=== PATIENT | female | born 1975 | race Caucasian/White ===

== ENCOUNTER 2017-01-12 09:43 | Emergency (ER) | payer BC ==
--- NOTE | 2017-01-12 09:53 | ER Document Report ---
ED Medical Screen (RME) - General Stated Complaint: SYNCOPE Time seen by provider: 09:49 Mode of Arrival: Wheelchair Information source: Patient Notes: 41-year-old female presents to ED for dizziness lightheadedness and 7 episodes of near-syncope. She states she'll just be like this morning driving and she gets everything black few seconds and then it comes back. 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 Patient's had a hysterectomy I have greeted and performed a rapid initial assessment of this patient. A comprehensive ED assessment and evaluation of the patient, analysis of test results and completion of medical decision making process will be conducted by an additional ED providers. TRAVEL OUTSIDE OF THE [place] IN LAST 30 DAYS: No - Related Data Allergies/Adverse Reactions: Sulfa (Sulfonamide Antibiotics) Allergy (Intermediate, Verified 01/12/17 09:49) rash/hives iodine [Iodine] Allergy (Verified 01/12/17 09:49) hives/rash promethazine [Promethazine] Adverse Reaction (Mild, Verified 01/12/17 09:49) leg shakes latex [Latex] Adverse Reaction (Verified 01/12/17 09:49) Peppers Allergy (Uncoded 01/12/17 09:49) Past Medical History - Past Medical History Cardiac Medical History: Denies: Hx Coronary Artery Disease, Hx Heart Attack, Hx Hypertension Pulmonary Medical History: Denies: Hx Asthma, Hx Bronchitis, Hx COPD, Hx Pneumonia Neurological Medical History: Reports: Hx Migraine. Denies: Hx Cerebrovascular Accident, Hx Seizures Endocrine Medical History: Reports: Hx Hypothyroidism GI Medical History: Reports: Hx Gastritis, Hx Irritable Bowel Musculoskeltal Medical History: Denies Hx Arthritis Past Surgical History: Reports: Hx Cholecystectomy, Hx Gynecologic Surgery - Left Oophrectomy, Hx Hysterectomy, Hx Tonsillectomy - T/A - Immunizations Immunizations up to date: Yes Hx Diphtheria, Pertussis, Tetanus Vaccination: Yes Physical Exam - Vital signs Vitals: Temp Pulse Resp BP Pulse Ox 98.4 F 100 16 121/84 98 01/12/17 09:46 01/12/17 09:46 01/12/17 09:46 01/12/17 09:46 01/12/17 09:46 Course - Vital Signs Vital signs: Temp Pulse Resp BP Pulse Ox 98.4 F 100 16 121/84 98 03/16/17 09:46 01/12/17 09:46 01/12/17 09:46 01/12/17 09:46 01/12/17 09:46
[2017-01-12 11:02] LABS: ABSOLUTE BASOPHILS # (AUTO) 0.1 10^3/uL (0.0-0.2); ABSOLUTE EOSINOPHILS # (AUTO) 0.2 10^3/uL (0.0-0.6); ABSOLUTE LYMPHOCYTES (AUTO) 2.2 10^3/uL (0.5-4.7); ABSOLUTE MONOCYTES (AUTO) 1.1 10^3/uL (0.1-1.4); ABSOLUTE NEUT (AUTO) 7.7 10^3/uL (1.7-8.2); BASOPHILS % (AUTO) 0.6 % (0-2); HEMATOCRIT 44.8 % (36.0-47.0); HGB HCT DIFFERENCE 0.2; LYMPHOCYTES % (AUTO) 19.8 % (13-45); MEAN CORPUSCULAR HEMOGLOBIN 29.6 pg (27.0-33.4); MEAN CORPUSCULAR HGB CONC 33.5 g/dL (32.0-36.0); MEAN CORPUSCULAR VOLUME 89 fl (80-97); MONOCYTES % (AUTO) 9.3 % (3-13); RED BLOOD COUNT 5.06 10^6/uL (3.72-5.28); RED CELL DISTRIBUTION WIDTH 12.7 % (11.5-14.0); SEGMENTED NEUTROPHILS % (AUTO) 68.3 % (42-78); WHITE BLOOD COUNT 11.4 10^3/uL (4.0-10.5)
--- NOTE | 2017-01-12 11:12 | ER Document Report ---
ED Syncope and Near Syncope - General Chief Complaint: Near Syncope Stated Complaint: SYNCOPE Time Seen by Provider: 01/12/17 09:48 Mode of Arrival: Wheelchair Notes: The patient is a 41-year-old female, past medical history Viktor's, chronic hypercalcemia, presents after feeling lightheaded multiple times over the past day. She says that the lightheadedness is worse when she stands up quickly. The episodes last a very short time with resolution of symptoms. She denies headache, syncope, nausea, vomiting, abdominal pain, urinary symptoms, chest pain, shortness of breath, fevers or leg swelling. TRAVEL OUTSIDE OF THE [place] IN LAST 30 DAYS: No - Related Data Allergies/Adverse Reactions: Sulfa (Sulfonamide Antibiotics) Allergy (Intermediate, Verified 01/12/17 09:49) rash/hives iodine [Iodine] Allergy (Verified 01/12/17 09:49) hives/rash promethazine [Promethazine] Adverse Reaction (Mild, Verified 01/12/17 09:49) leg shakes latex [Latex] Adverse Reaction (Verified 01/12/17 09:49) Peppers Allergy (Uncoded 01/12/17 09:49) Past Medical History - General Information source: Patient - Social History Smoking Status: Never Smoker Chew tobacco use (# tins/day): No Frequency of alcohol use: None Drug Abuse: None Family History: Reviewed & Not Pertinent Patient has suicidal ideation: No Patient has homicidal ideation: No - Past Medical History Cardiac Medical History: Denies: Hx Coronary Artery Disease, Hx Heart Attack, Hx Hypertension Pulmonary Medical History: Denies: Hx Asthma, Hx Bronchitis, Hx COPD, Hx Pneumonia Neurological Medical History: Reports: Hx Migraine. Denies: Hx Cerebrovascular Accident, Hx Seizures Endocrine Medical History: Reports: Hx Hypothyroidism Renal/ Medical History: Denies: Hx Peritoneal Dialysis GI Medical History: Reports: Hx Gastritis, Hx Irritable Bowel Musculoskeltal Medical History: Denies Hx Arthritis Past Surgical History: Reports: Hx Cholecystectomy, Hx Gynecologic Surgery - Left Oophrectomy, Hx Hysterectomy, Hx Tonsillectomy - T/A - Immunizations Immunizations up to date: Yes Hx Diphtheria, Pertussis, Tetanus Vaccination: Yes Review of Systems - Review of Systems Notes: REVIEW OF SYSTEMS: CONSTITUTIONAL: -fevers, -chills EENT: -eye pain, -difficulty swallowing, -nasal congestion CARDIOVASCULAR:-chest pain, -syncope. RESPIRATORY: -cough, -SOB GASTROINTESTINAL: -abdominal pain, - nausea, -vomiting, -diarrhea GENITOURINARY: -dysuria, -hematuria MUSCULOSKELETAL: -back pain, -neck pain SKIN: -rash or skin lesions. HEMATOLOGIC: -easy bruising or bleeding. LYMPHATIC: -swollen, enlarged glands. NEUROLOGICAL: -altered mental status or loss of consciousness, -headache, - neurologic symptoms PSYCHIATRIC: -anxiety, -depression. ALL OTHER SYSTEMS REVIEWED AND NEGATIVE. Physical Exam - Vital signs Vitals: Temp Pulse Resp BP Pulse Ox 98.4 F 100 16 121/84 98 01/12/17 09:46 01/12/17 09:46 01/12/17 09:46 01/12/17 09:46 01/12/17 09:46 - Notes Notes: PHYSICAL EXAMINATION: GENERAL: Well-appearing, well-nourished and in no acute distress. HEAD: Atraumatic, normocephalic. EYES: Pupils equal round and reactive to light, extraocular movements intact, sclera anicteric, conjunctiva are normal. ENT: nares patent, oropharynx clear without exudates. Moist mucous membranes. NECK: Normal range of motion, supple without lymphadenopathy LUNGS: Breath sounds clear to auscultation bilaterally and equal. No wheezes rales or rhonchi. HEART: Regular rate and rhythm without murmurs ABDOMEN: Soft, nontender, normoactive bowel sounds. No guarding, no rebound. No masses appreciated. EXTREMITIES: Normal range of motion, no pitting or edema. No cyanosis. NEUROLOGICAL: Cranial nerves grossly intact. Normal speech, normal gait. Normal sensory, motor, and reflex exams. PSYCH: Normal mood, normal affect. SKIN: Warm, Dry, normal turgor, no rashes or lesions noted. Course - Re-evaluation Re-evalutation: Patient monitored in the ER without any arrhythmias. She still feels briefly lightheaded lightheaded with a normal sinus rhythm on the monitor. She is slightly orthostatic when tested. Provided IV fluids. Patient is still feeling lightheaded when she goes from laying down to sitting. Will obtain a CTA to assess for PE due to these near syncopal episodes. She said that she had hives from a prior CT scan with IV contrast. Will premedicate her at this time. CTA negative for PE. No allergic reaction noted. Asymptomatic at this time. Told her to follow-up with her primary care physician and transplant immunologist for further evaluation and treatment of her symptoms and hypercalcemia. Given strict return precautions and she understands. - Vital Signs Vital signs: Temp Pulse Resp BP Pulse Ox 98.4 F 81 13 108/67 98 01/12/17 09:46 01/12/17 17:07 01/12/17 15:05 01/12/17 17:07 01/12/17 14:01 - Laboratory Result Diagrams: 01/12/17 10:40 01/12/17 10:40 Laboratory results interpreted by me: 01/12/17 01/12/17 01/12/17 10:40 10:40 11:00 WBC 11.4 H Calcium 12.1 H* Total Protein 8.8 H Ur Leukocyte Esterase TRACE H - EKG Interpretation by Me EKG shows normal: Sinus rhythm, Lando, Intervals, QRS Complexes, ST-T Waves Rate: Normal Discharge - Discharge Clinical Impression: Lightheaded Condition: Good Disposition: HOME, SELF-CARE Additional Instructions: Orthostatic Hypotension You have orthostatic hypotension. Your blood pressure goes down when you stand up. Symptoms can include dizziness, transient loss of vision, ringing in the ears, nausea, and fainting. At this time, there's no evidence of a serious problem requiring hospitalization. Orthostatic hypotension can be caused by dehydration, poor nutrition, over- exercise, or medication. For some people, orthostatic hypotension is an ongoing problem, and no cause can be found. We usually treat orthostatic hypotension with fluids. We look for a treatable cause. If no cause was found, you should get enough rest, exercise moderately, and get plenty of fluids. When you feel the first symptoms suggesting you might faint, sit or squat down as quickly as you can. If symptoms don't go away quickly, lie down. Call the doctor or return if you are worsening or if new symptoms develop. Referrals: LUIS GERARD MD [Primary Care Provider] - Follow up as needed
--- NOTE | 2017-01-12 11:15 | EKG REPORT ---
SEVERITY:- NORMAL ECG - SINUS RHYTHM : Confirmed by: Molly Craven 12-Jan-2017 11:15:00
[2017-01-12 11:18] LABS: APPEARANCE,URINE SLIGHTLY-CLOUDY; BILIRUBIN,URINE NEGATIVE (NEGATIVE); GLUCOSE, URINE NEGATIVE (NEGATIVE); KETONES,URINE NEGATIVE (NEGATIVE); LEUKOCYTE ESTERASE,URINE TRACE (NEGATIVE); NITRITE,URINE NEGATIVE (NEGATIVE); PROTEIN,URINE NEGATIVE (NEGATIVE); URINE SPECIFIC GRAVITY 1.025; UROBILINOGEN,URINE NEGATIVE mg/dL (<2.0)
[2017-01-12 11:19] LABS: ALANINE AMINOTRANSFERASE 49 U/L (9-52); ALKALINE PHOSPHATASE 101 U/L (38-126); ANION GAP 12 (5-19); ASPARTATE AMINO TRANSFERASE 33 U/L (14-36); BILIRUBIN,TOTAL 1.2 mg/dL (0.2-1.3); BLOOD UREA NITROGEN 18 mg/dL (7-20); CARBON DIOXIDE 28 mmol/L (22-30); CHLORIDE 104 mmol/L (98-107); CREATINE KINASE 30 U/L (30-135); CREATININE RESULT 0.56 mg/dL (0.52-1.25); GLUCOSE 99 mg/dL (75-110); POTASSIUM 4.3 mmol/L (3.6-5.0); SODIUM 143.8 mmol/L (137-145); TOTAL PROTEIN 8.8 g/dL (6.3-8.2)
[2017-01-12 11:33] LABS: CREATINE KINASE MB < 0.22 ng/mL (<4.55); TROPONIN I < 0.012 ng/mL
[2017-01-12 11:38] LABS: CALCIUM 12.1 mg/dL (8.4-10.2)
[2017-01-12] MEDS ORDERED: NORMAL SALINE 1000 ML 1,000 ML IV PRN (11:43)
[2017-01-12] MEDS ORDERED: NORMAL SALINE 1000 ML 1,000 ML IV ONE (17:29)
[2017-01-12] MEDS ORDERED: DIPHENHYDRAMINE HCL 50 MG/ML VIAL IV ONE (17:29)
[2017-01-12] MEDS ORDERED: METHYLPREDNISOLONE INJ 125 MG/2 ML SDV IV ONE (17:30)
[2017-01-12] MEDS ORDERED: FAMOTIDINE INJ/PF 20 MG/2 ML SDV IV ONE (17:30)
[2017-01-12 18:40] VITALS: BP 119/75
== END 2017-01-12 18:49 | disposition home or self-care (01) ==
LOC: ER 09:43
DX: R42 Dizziness and giddiness (principal); R55 Syncope and collapse; E03.9 Hypothyroidism, unspecified; Z88.2 Allergy status to sulfonamides; Z91.040 Latex allergy status; Z90.49 Acquired absence of other specified parts of digestive tract; Z90.710 Acquired absence of both cervix and uterus; Z90.721 Acquired absence of ovaries, unilateral; Z91.041 Radiographic dye allergy status
CPT/HCPCS: 93005; 99284; 96361; 96374; 96375; 36415; 82553; 82962; 82550; 85025; 81025; 80053; 81001; 84484; 71275; 93010; J1200; J2930; J7030; S0028

== ENCOUNTER 2017-06-20 08:15 | Emergency (ER) | payer BC ==
[2017-06-20] MEDS ORDERED: PROCHLORPERAZINE EDISYLATE INJ 10 MG/2 ML VIAL IV ONE (08:27)
[2017-06-20] MEDS ORDERED: NORMAL SALINE 1000 ML 1,000 ML IV ONE (08:27)
[2017-06-20] MEDS ORDERED: KETOROLAC TROMETHAMINE INJ/PF 30 MG/1 ML SDV IV ONE (08:27)
[2017-06-20] MEDS ORDERED: DIPHENHYDRAMINE HCL 50 MG/ML VIAL IV ONE (08:27)
[2017-06-20] MEDS ORDERED: SUMATRIPTAN SUCCINATE 100 MG TABLET PO ONE (10:08)
--- NOTE | 2017-06-20 10:11 | ER Document Report ---
ED Headache - General Chief Complaint: Headache Stated Complaint: HEADACHE Time Seen by Provider: 06/20/17 08:26 Mode of Arrival: Ambulatory Information source: Patient Notes: Patient is a 42-year-old female with history of migraines and trigeminal neuralgia who presents to the ER today for migraine that she woke up with yesterday. Patient tried her on Fioricet yesterday 2 doses which did not help , she also tried Benadryl at home which did not help. She states that she is very light and sound sensitive. She does usually have an aura with her migraines of left sided facial puffiness, which did occur prior to this migraine onset. She denies any nausea or vomiting, blurred vision. TRAVEL OUTSIDE OF THE [place] IN LAST 30 DAYS: No - Related Data Allergies/Adverse Reactions: Sulfa (Sulfonamide Antibiotics) Allergy (Intermediate, Verified 06/20/17 08:18) rash/hives iodine [Iodine] Allergy (Verified 06/20/17 08:18) hives/rash promethazine [Promethazine] Adverse Reaction (Mild, Verified 06/20/17 08:18) leg shakes latex [Latex] Adverse Reaction (Verified 06/20/17 08:18) Peppers Allergy (Uncoded 06/20/17 08:18) Past Medical History - General Information source: Patient - Social History Smoking Status: Never Smoker Chew tobacco use (# tins/day): No Frequency of alcohol use: None Drug Abuse: None Family History: Reviewed & Not Pertinent Patient has suicidal ideation: No Patient has homicidal ideation: No - Past Medical History Cardiac Medical History: Denies: Hx Coronary Artery Disease, Hx Heart Attack, Hx Hypertension Pulmonary Medical History: Denies: Hx Asthma, Hx Bronchitis, Hx COPD, Hx Pneumonia Neurological Medical History: Reports: Hx Migraine. Denies: Hx Cerebrovascular Accident, Hx Seizures Endocrine Medical History: Reports: Hx Hypothyroidism Renal/ Medical History: Denies: Hx Peritoneal Dialysis GI Medical History: Reports: Hx Gastritis, Hx Irritable Bowel Musculoskeltal Medical History: Denies Hx Arthritis Past Surgical History: Reports: Hx Cholecystectomy, Hx Gynecologic Surgery - Left Oophrectomy, Hx Hysterectomy, Hx Tonsillectomy - T/A - Immunizations Immunizations up to date: Yes Hx Diphtheria, Pertussis, Tetanus Vaccination: Yes Review of Systems - Review of Systems Constitutional: No symptoms reported EENT: No symptoms reported Cardiovascular: No symptoms reported Respiratory: No symptoms reported Gastrointestinal: No symptoms reported Genitourinary: No symptoms reported Female Genitourinary: No symptoms reported Musculoskeletal: No symptoms reported Skin: No symptoms reported Hematologic/Lymphatic: No symptoms reported Neurological/Psychological: See HPI Physical Exam - Vital signs Vitals: Temp Pulse Resp BP Pulse Ox 97.5 F 79 14 130/91 H 98 06/20/17 08:18 06/20/17 08:18 06/20/17 08:18 06/20/17 08:18 06/20/17 08:18 - Notes Notes: PHYSICAL EXAMINATION: GENERAL: Appears uncomfortable, lying in a dark room, but d in no acute distress. HEAD: Atraumatic, normocephalic. EYES: Pupils equal round and reactive to light, extraocular movements intact, sclera anicteric, conjunctiva are normal. NECK: Normal range of motion, supple without lymphadenopathy LUNGS: CTAB and equal. No wheezes rales or rhonchi. HEART: Regular rate and rhythm without murmurs ABDOMEN: Soft, no tenderness. No guarding, no rebound BACK: no vertebral tenderness, normal ROM GI/: no CVA tenderness EXTREMITIES: Normal range of motion, no pitting edema. No cyanosis. NEUROLOGICAL: no tenderness to trigeminal nerve bilaterally, Cranial nerves grossly intact. Normal sensory/motor exams. Good and equal strength bilaterally , Kernig and Brudzinski's signs negative, Romberg's test normal, normal heel to cain testing PSYCH: Normal mood, normal affect. SKIN: Warm, Dry, normal turgor, no rashes or lesions noted Course - Re-evaluation Re-evalutation: 06/20/17 10:20 Patient feels better after IV fluids, Toradol, Compazine and Benadryl, patient still has a migraine but states that it is "only a 2 out of 5 now." I will give her sumatriptan here and a prescription to see if it helps. She'd like to go home at this time. 06/20/17 10:20 - Vital Signs Vital signs: Temp Pulse Resp BP Pulse Ox 97.5 F 79 14 130/91 H 98 06/20/17 08:18 06/20/17 08:18 06/20/17 08:18 06/20/17 08:18 06/20/17 08:18 Discharge - Discharge Clinical Impression: Migraine Qualifiers: Migraine type: with aura Status migrainosus presence: without status migrainosus Intractability: not intractable Qualified Code(s): G43.109 - Migraine with aura, not intractable, without status migrainosus Condition: Stable Disposition: HOME, SELF-CARE Instructions: Intravenous Compazine for Headaches ([facility]), Use of Diphenhydramine , Headache ([facility]), Toradol Injection ([facility]) Additional Instructions: If you need another dose of sumatriptan, you can take it in 1 hour. Return immediately for any new or worsening symptoms. Follow up with primary care provider, call tomorrow to make followup appointment. Prescriptions: Sumatriptan Succinate 100 mg PO PRN PRN #6 tablet PRN Reason: Forms: Return to Work Referrals: LUIS GERARD MD [Primary Care Provider] - Follow up as needed
[2017-06-20 10:28] VITALS: BP 119/73
== END 2017-06-20 10:26 | disposition home or self-care (01) ==
LOC: ER 08:15
DX: G43.109 Migraine with aura, not intractable, without status migrainosus (principal); Z88.2 Allergy status to sulfonamides; Z91.018 Allergy to other foods
CPT/HCPCS: 99284; 96374; 96375; J1200; J1885; J0780; J7030; J3490

== ENCOUNTER → 2017-08-28 | Outpatient (CLI) | payer BC ==
[2017-08-28 08:56] LABS: ABSOLUTE BASOPHILS # (AUTO) 0.1 10^3/uL (0.0-0.2); ABSOLUTE EOSINOPHILS # (AUTO) 0.3 10^3/uL (0.0-0.6); ABSOLUTE LYMPHOCYTES (AUTO) 2.3 10^3/uL (0.5-4.7); ABSOLUTE MONOCYTES (AUTO) 0.6 10^3/uL (0.1-1.4); ABSOLUTE NEUT (AUTO) 4.1 10^3/uL (1.7-8.2); BASOPHILS % (AUTO) 0.9 % (0-2); EOSINOPHILS % (AUTO) 3.6 % (0-6); HEMATOCRIT 41.2 % (36.0-47.0); HEMOGLOBIN 14.3 g/dL (12.0-15.5); HGB HCT DIFFERENCE 1.7; LYMPHOCYTES % (AUTO) 31.2 % (13-45); MEAN CORPUSCULAR HEMOGLOBIN 30.6 pg (27.0-33.4); MEAN CORPUSCULAR HGB CONC 34.8 g/dL (32.0-36.0); MEAN CORPUSCULAR VOLUME 88 fl (80-97); MONOCYTES % (AUTO) 7.8 % (3-13); RED BLOOD COUNT 4.68 10^6/uL (3.72-5.28); RED CELL DISTRIBUTION WIDTH 12.7 % (11.5-14.0); SEGMENTED NEUTROPHILS % (AUTO) 56.5 % (42-78); WHITE BLOOD COUNT 7.3 10^3/uL (4.0-10.5)
[2017-08-28 09:14] LABS: ALANINE AMINOTRANSFERASE 33 U/L (9-52); ALBUMIN 4.4 g/dL (3.5-5.0); ALKALINE PHOSPHATASE 90 U/L (38-126); ANION GAP 11 (5-19); ASPARTATE AMINO TRANSFERASE 25 U/L (14-36); BILIRUBIN,DIRECT 0.3 mg/dL (0.0-0.4); BILIRUBIN,TOTAL 0.4 mg/dL (0.2-1.3); BLOOD UREA NITROGEN 11 mg/dL (7-20); CARBON DIOXIDE 28 mmol/L (22-30); CHLORIDE 105 mmol/L (98-107); CHOLESTEROL 185.89 mg/dL (0-200); CREATININE RESULT 0.63 mg/dL (0.52-1.25); Direct HDL 71 mg/dL (>40); GLUCOSE 97 mg/dL (75-110); POTASSIUM 4.2 mmol/L (3.6-5.0); SODIUM 143.7 mmol/L (137-145); TOTAL PROTEIN 7.6 g/dL (6.3-8.2); TRIGLYCERIDES 120 mg/dL (<150)
[2017-08-28 09:25] LABS: DIRECT LDL 94 mg/dL (<100)
[2017-08-28 09:45] LABS: THYROID STIMULATING HORMONE 22.5 uIU/mL (0.47-4.68)
== END ==
LOC: LAB 08:32
PROVIDERS: ATTEND Physician Assistant
DX: E03.9 Hypothyroidism, unspecified (principal); E78.4 Other hyperlipidemia; R53.83 Other fatigue
CPT/HCPCS: 36415; 80053; 80061; 84439; 84443; 85025

== ENCOUNTER 2017-09-13 09:07 | Emergency (ER) | payer BC ==
[2017-09-13 10:13] LABS: ABSOLUTE BASOPHILS # (AUTO) 0.1 10^3/uL (0.0-0.2); ABSOLUTE EOSINOPHILS # (AUTO) 0.1 10^3/uL (0.0-0.6); ABSOLUTE LYMPHOCYTES (AUTO) 1.5 10^3/uL (0.5-4.7); ABSOLUTE NEUT (AUTO) 4.9 10^3/uL (1.7-8.2); BASOPHILS % (AUTO) 0.7 % (0-2); HEMATOCRIT 42.9 % (36.0-47.0); HEMOGLOBIN 14.8 g/dL (12.0-15.5); HGB HCT DIFFERENCE 1.5; MEAN CORPUSCULAR HEMOGLOBIN 30.2 pg (27.0-33.4); MEAN CORPUSCULAR HGB CONC 34.5 g/dL (32.0-36.0); MEAN CORPUSCULAR VOLUME 88 fl (80-97); MONOCYTES % (AUTO) 13.5 % (3-13); RED CELL DISTRIBUTION WIDTH 12.7 % (11.5-14.0); SEGMENTED NEUTROPHILS % (AUTO) 63.8 % (42-78); WHITE BLOOD COUNT 7.6 10^3/uL (4.0-10.5)
[2017-09-13 10:30] LABS: ALANINE AMINOTRANSFERASE 42 U/L (9-52); ALBUMIN 4.5 g/dL (3.5-5.0); ALKALINE PHOSPHATASE 94 U/L (38-126); ANION GAP 13 (5-19); ASPARTATE AMINO TRANSFERASE 30 U/L (14-36); BILIRUBIN,DIRECT 0.3 mg/dL (0.0-0.4); BILIRUBIN,TOTAL 0.8 mg/dL (0.2-1.3); BLOOD UREA NITROGEN 8 mg/dL (7-20); CALCIUM 10.5 mg/dL (8.4-10.2); CARBON DIOXIDE 22 mmol/L (22-30); CHLORIDE 106 mmol/L (98-107); CREATININE RESULT 0.64 mg/dL (0.52-1.25); GLUCOSE 99 mg/dL (75-110); LIPASE 34.2 U/L (23-300); POTASSIUM 4.1 mmol/L (3.6-5.0); SODIUM 141.4 mmol/L (137-145); TOTAL PROTEIN 7.6 g/dL (6.3-8.2)
[2017-09-13] MEDS ORDERED: NORMAL SALINE 1000 ML 1,000 ML IV PRN (10:40)
[2017-09-13 11:25] LABS: APPEARANCE,URINE SLIGHTLY-CLOUDY; BILIRUBIN,URINE NEGATIVE (NEGATIVE); GLUCOSE, URINE NEGATIVE (NEGATIVE); KETONES,URINE NEGATIVE (NEGATIVE); LEUKOCYTE ESTERASE,URINE NEGATIVE (NEGATIVE); NITRITE,URINE NEGATIVE (NEGATIVE); PROTEIN,URINE NEGATIVE (NEGATIVE); URINE SPECIFIC GRAVITY 1.012; UROBILINOGEN,URINE NEGATIVE mg/dL (<2.0)
[2017-09-13 12:13] VITALS: BP 109/64
--- NOTE | 2017-09-13 12:38 | RADIOLOGY REPORT (SQ) ---
EXAM DESCRIPTION: CT ABD/PELVIS NO ORAL OR IV COMPLETED DATE/TIME: 09/13/2017 12:07 pm REASON FOR STUDY: RLQ Pain COMPARISON: None. TECHNIQUE: CT scan of the abdomen and pelvis performed without intravenous or oral contrast. Images reviewed with lung, soft tissue, and bone windows. Reconstructed coronal and sagittal MPR images revi ewed. All images stored on PACS. All CT scanners at this facility use dose modulation, iterative reconstruction, and/or weight based d osing when appropriate to reduce radiation dose to as low as reasonably achievable (ALARA). [facility]: Dose Right [facility]: CareDose [facility]: Dose Right [facility]: Teradose 4D [facility]: Smart RadioFrame RADIATION DOSE: Up-to-date CT equipment and radiation dose reduction techniques were employed. CTDIv ol: 6.7 mGy. DLP: 350 mGy-cm.mGy. LIMITATIONS: 05/11/2011 FINDINGS: LOWER CHEST: No significant findings. No nodules or infiltrates. NON-CONTRASTED LIVER, SPLEEN, ADRENALS: Evaluation limited by lack of IV contrast. No identified sign ificant masses. PANCREAS: No masses. No peripancreatic inflammatory changes. GALLBLADDER: Surgically absent. RIGHT KIDNEY AND URETER: No suspicious masses. Assessment limited by lack of IV contrast. No signif icant calcifications. No hydronephrosis or hydroureter. LEFT KIDNEY AND URETER: No suspicious masses. Assessment limited by lack of IV contrast. No signifi cant calcifications. No hydronephrosis or hydroureter. AORTA AND RETROPERITONEUM: No aneurysm. No retroperitoneal masses or adenopathy. BOWEL AND PERITONEAL CAVITY: No obvious masses or inflammatory changes. No free fluid. APPENDIX: Normal. PELVIS, BLADDER, AND ABDOMINAL WALL:No abnormal masses. No free fluid. Bladder normal. BONES: No significant findings. OTHER: No other significant finding. IMPRESSION: NO SIGNIFICANT OR ACUTE PROCESS IN THE ABDOMEN OR PELVIS. THERE ARE NO FINDINGS THAT EX PLAIN THE PATIENT'S PAIN. COMMENT: Quality ID # [id number]: Final reports with documentation of one or more dose reduction techniques (e.g., Automated exposure control, adjustment of the mA and/or kV according to patient size, use of iterative reconstruction technique) TECHNICAL DOCUMENTATION: JOB ID: [id number] [employer]- All Rights Reserved
--- NOTE | 2017-09-13 13:05 | ER Document Report ---
ED GI/ - General Chief Complaint: Abdominal Pain Stated Complaint: ABDOMINAL PAIN Time Seen by Provider: 09/13/17 09:50 Mode of Arrival: Ambulatory Information source: Patient, Relative Notes: Patient is a 42-year-old female comes emergency room complaining of 3 day onset of severe diarrhea with vomiting on the first day. 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 She has had vomiting on day 1 where she vomited 2-3 times and since then she has had multiple bouts of diarrhea originally starting out as a muddy water presentation and then turning of bile yellowish color. She complains of diffuse abdominal tenderness as well. The pain is fairly constant but it varies in intensity. She denies having any fevers or dysuria problems. She is having at its onset 3 days ago 2-3 bouts of watery diarrhea per hour. Patient has a history of abdominal surgeries for a cholecystectomy and a hysterectomy and she has had 2 exploratory laparotomies. TRAVEL OUTSIDE OF THE [place] IN LAST 30 DAYS: No - HPI Patient complains to provider of: Abdominal pain Onset: Other - 3 days Timing/Duration: Sudden, Intermittent, Persistent, Waxing and waning Quality of pain: Cramping, Sharp, Stabbing Severity at maximum: Severe Severity in ED: Moderate Pain Level: 2 Context: Other - Unknown Location: RUQ, RLQ, Other - Paraumbilical Adult Front & Back Diagram: 1 - Area of tenderness has slight rebound as moderate referral there is no psoas no heel strike response. Vaginal bleeding (Compared to normal period): None LMP: Hysterectomy Sexual history: Active Exacerbated by: Other - Nothing Relieved by: Other - Nothing Recently seen / treated by doctor: No - Related Data Allergies/Adverse Reactions: Sulfa (Sulfonamide Antibiotics) Allergy (Intermediate, Verified 09/13/17 09:10) rash/hives iodine [Iodine] Allergy (Verified 09/13/17 09:10) hives/rash promethazine [Promethazine] Adverse Reaction (Mild, Verified 09/13/17 09:10) leg shakes latex [Latex] Adverse Reaction (Verified 09/13/17 09:10) Peppers Allergy (Uncoded 09/13/17 09:10) Home Medications: Current Home Medications Levothyroxine Sodium [Tirosint] 200 mcg PO DAILY 09/13/17 [History] Past Medical History - General Information source: Relative - Social History Smoking Status: Never Smoker Chew tobacco use (# tins/day): No Frequency of alcohol use: None Drug Abuse: None Family History: Reviewed & Not Pertinent Patient has suicidal ideation: No Patient has homicidal ideation: No - Past Medical History Cardiac Medical History: Denies: Hx Coronary Artery Disease, Hx Heart Attack, Hx Hypertension Pulmonary Medical History: Denies: Hx Asthma, Hx Bronchitis, Hx COPD, Hx Pneumonia Neurological Medical History: Reports: Hx Migraine. Denies: Hx Cerebrovascular Accident, Hx Seizures Endocrine Medical History: Reports: Hx Hypothyroidism Renal/ Medical History: Denies: Hx Peritoneal Dialysis GI Medical History: Reports: Hx Gastritis, Hx Irritable Bowel Musculoskeltal Medical History: Denies Hx Arthritis Past Surgical History: Reports: Hx Cholecystectomy, Hx Gynecologic Surgery - Left Oophrectomy, Hx Hysterectomy, Hx Tonsillectomy - T/A - Immunizations Immunizations up to date: Yes Hx Diphtheria, Pertussis, Tetanus Vaccination: Yes Review of Systems - Review of Systems Constitutional: No symptoms reported EENT: No symptoms reported Cardiovascular: No symptoms reported Respiratory: No symptoms reported Gastrointestinal: See HPI, Abdominal pain, Diarrhea, Nausea, Vomiting Genitourinary: No symptoms reported Female Genitourinary: No symptoms reported Musculoskeletal: No symptoms reported Skin: No symptoms reported Hematologic/Lymphatic: No symptoms reported Neurological/Psychological: No symptoms reported -: Yes All other systems reviewed and negative Physical Exam - Vital signs Vitals: Temp Pulse Resp BP Pulse Ox 98.4 F 103 H 14 137/86 H 97 09/13/17 09:10 09/13/17 09:10 09/13/17 09:10 09/13/17 09:10 09/13/17 09:10 - Notes Notes: Uncomfortable appearing - General General appearance: Alert - HEENT Head: Normocephalic, Atraumatic Eyes: Normal Mucous membranes: Moist - Respiratory Respiratory status: No respiratory distress Breath sounds: Normal. No: Decreased air movement, Nonproductive cough, Productive cough, Rales, Rhonchi, Stridor, Wheezing - Cardiovascular Rhythm: Tachycardia Heart sounds: Normal auscultation Murmur: No - Abdominal Inspection: Obese Distension: No distension Bowel sounds: Hyperactive Tenderness: Tender, McBurney's point, Other - Examination patient's abdomen pelvic area shows that she has tenderness to palpation periumbilically with rebound and referred pain noted. There is no other peritoneal signs. Suprapubic area shows no tenderness to palpation. - Back Back: Normal - Extremities General upper extremity: Normal inspection General lower extremity: Normal inspection - Neurological Neuro grossly intact: Yes Cognition: Normal Orientation: AAOx4 Johnnie Coma Scale Eye Opening: Spontaneous [place] Coma Scale Verbal: Oriented [place] Coma Scale Motor: Obeys Commands [place] Coma Scale Total: 15 Speech: Normal - Skin Skin Temperature: Warm Skin Moisture: Dry Skin Color: Normal, [place] Course - Vital Signs Vital signs: Temp Pulse Resp BP Pulse Ox 98.0 F 82 16 109/64 98 09/13/17 12:11 09/13/17 12:11 09/13/17 12:11 09/13/17 12:11 09/13/17 12:11 - Laboratory Result Diagrams: 09/13/17 09:50 09/13/17 09:50 Laboratory results interpreted by me: 09/13/17 09/13/17 09:50 09:50 Monocytes % 13.5 H Calcium 10.5 H - Diagnostic Test Radiology results interpreted by pr: 09/13/17 13:10 All normal per radiology Discharge - Discharge Clinical Impression: Gastroenteritis and colitis, viral Condition: Good Disposition: HOME, SELF-CARE Instructions: Abdominal Pain ([facility]), Gastroenteritis (adult) ([facility]) Additional Instructions: Home and rest. Medication as prescribed, Fluid intake as much as possible as we have discussed. At least keep sipping at fluids. Use the Bentyl for the cramping. Return to ER for any concerns or problems. Prescriptions: Ondansetron [Zofran Odt 4 mg Tablet] 1 - 2 tab PO Q4HP PRN #16 tab.rapdis PRN Reason: Dicyclomine HCl [Bentyl 10 mg Capsule] 1 cap PO TID #30 cap Referrals: LUIS GERARD MD [Primary Care Provider] - Follow up as needed
== END 2017-09-13 13:36 | disposition home or self-care (01) ==
LOC: ER 09:07
DX: K52.89 Other specified noninfective gastroenteritis and colitis (principal); R10.9 Unspecified abdominal pain; R19.7 Diarrhea, unspecified; R11.2 Nausea with vomiting, unspecified; Z90.49 Acquired absence of other specified parts of digestive tract; Z90.710 Acquired absence of both cervix and uterus
CPT/HCPCS: 99284; 96360; 36415; 87045; 89055; 87205; 83690; 85025; 81025; 80053; 81001; 87493; 74176; J7030

== ENCOUNTER 2017-09-18 09:41 | Day surgery (SDC) | payer BC ==
[~2017-09-18 09:41] MED LIST: PROPOFOL INJ 200 MG/20 ML VIAL IV ONE
[2017-09-18 11:09] VITALS: BP 113/68
--- NOTE | 2017-09-18 12:38 | Operative Report ---
Operative Report DATE OF SURGERY: 09/18/17 Operative Report: The risks, benefits and alternatives of the procedure including risks of bleeding, perforation requiring surgery are explained to the patient in detail and informed consent is obtained. Patient was taken back to the endoscopy suite and placed in a left, lateral decubital position. A rectal examination is done which did not reveal any masses, tears or fissures. Timeout was called. Propofol medications administered. An Olympus videoscope was inserted into the patient's rectum. The scope was then carefully advanced all the way to the cecum. The cecum was identified by the usual anatomical landmarks including the ileocecal valve as well as the appendiceal office. Photodocumentation is obtained. The scope was then sequentially pulled back via the various segments of the colon including the ascending colon, hepatic flexure, transverse colon, splenic flexure, descending colon finding to the rectosigmoid portions of the colon. Retroflexion maneuvers performed. PREOPERATIVE DIAGNOSIS: Change of bowel habits, diarrhea rule out colitis POSTOPERATIVE DIAGNOSIS: Mild inflammation noted right side of the colon status post biopsy rule out lymphocytic, microscopic, collagenous colitis. OPERATION: Colonoscopy with biopsy SURGEON: JADEN CALDERON ANESTHESIA: LMAC TISSUE REMOVED OR ALTERED: As noted above. COMPLICATIONS: None. ESTIMATED BLOOD LOSS: None. INTRAOPERATIVE FINDINGS: As described above. PROCEDURE: Patient tolerated procedure well. No immediate postprocedure complications are noted. Patient discharged in good condition. Discharge date 09/18/2017. Discharge diet: Regular. Discharge activity: Regular. 2-3 week follow-up to discuss findings. Patient is instructed to call the office or proceed to the emergency room should there be any further problems or questions. Suspicious for postinfectious IBS. We will await pathology.
== END 2017-09-18 11:10 | disposition home or self-care (01) ==
LOC: END 09:41
PROVIDERS: ATTEND Internal Medicine Gastroenterology
PROC: 0DBF8ZX Excision of Right Large Intestine, Via Natural or Artificial Opening Endoscopic, Diagnostic (ICD-10-PCS; principal; 2017-09-18 12:00)
DX: K52.9 Noninfective gastroenteritis and colitis, unspecified (principal); E06.3 Autoimmune thyroiditis; G50.0 Trigeminal neuralgia
CPT/HCPCS: 45380; 88305 ×2; J2704; 810

== ENCOUNTER → 2017-10-24 | Outpatient (CLI) | payer BC ==
[2017-10-24 09:21] LABS: THYROID STIMULATING HORMONE 25.1 uIU/mL (0.47-4.68)
[2017-10-25 08:27] LABS: VITAMIN D 25-HYDROXY 12.1 ng/mL (30.0-100.0)
[2017-10-26 15:37] LABS: A/G RATIO 1.1 (0.7-1.7); ALPHA-1-GLOBULIN 2 0.3 g/dL (0.0-0.4); GAMMA GLOBULIN 1.5 g/dL (0.4-1.8); PROTEIN TOTAL SERUM 7.3 g/dL (6.0-8.5)
== END ==
LOC: LAB 08:18
PROVIDERS: ATTEND Physician Assistant
DX: E03.9 Hypothyroidism, unspecified (principal); E55.9 Vitamin D deficiency, unspecified; M13.0 Polyarthritis, unspecified
CPT/HCPCS: 36415; 82306; 84165; 84439; 84443

== ENCOUNTER → 2018-01-21 | Outpatient (CLI) | payer BC ==
--- NOTE | 2018-01-21 16:50 | RADIOLOGY REPORT (SQ) ---
EXAM DESCRIPTION: CHEST PA/LAT COMPLETED DATE/TIME: 01/21/2018 4:43 pm REASON FOR STUDY: FLU LIKE SYMPTOMS (R68.89) COMPARISON: CTA chest 01/12/2017 Two-view chest 02/26/2009 EXAM PARAMETERS: NUMBER OF VIEWS: two views TECHNIQUE: Digital Frontal and Lateral radiographic views of the chest acquired. RADIATION DOSE: NA LIMITATIONS: none FINDINGS: LUNGS AND PLEURA: No opacities, masses or pneumothorax. No pleural effusion. MEDIASTINUM AND HILAR STRUCTURES: No masses or contour abnormalities. HEART AND VASCULAR STRUCTURES: Heart normal size. No evidence for failure. BONES: No acute findings. HARDWARE: Clips right upper quadrant post cholecystectomy OTHER: No other significant finding. IMPRESSION: NO SIGNIFICANT RADIOGRAPHIC FINDING IN THE CHEST. TECHNICAL DOCUMENTATION: JOB ID: [id number] [employer]- All Rights Reserved Reading location - IP/workstation name: [email or web address]
== END ==
LOC: RAD 16:28
PROVIDERS: ATTEND Emergency Medicine
DX: H92.01 Otalgia, right ear (principal); M79.1 Myalgia; R11.0 Nausea; R68.89 Other general symptoms and signs
CPT/HCPCS: 71046

== ENCOUNTER → 2018-01-21 | Outpatient (CLI) | payer BC ==
[2018-01-21 17:14] LABS: ABSOLUTE EOSINOPHILS # (AUTO) 0.1 10^3/uL (0.0-0.6); ABSOLUTE MONOCYTES (AUTO) 0.6 10^3/uL (0.1-1.4); ABSOLUTE NEUT (AUTO) 2.9 10^3/uL (1.7-8.2); BASOPHILS % (AUTO) 0.4 % (0-2); EOSINOPHILS % (AUTO) 1.2 % (0-6); HEMATOCRIT 43.6 % (36.0-47.0); HEMOGLOBIN 14.7 g/dL (12.0-15.5); LYMPHOCYTES % (AUTO) 35.5 % (13-45); MEAN CORPUSCULAR HEMOGLOBIN 29.6 pg (27.0-33.4); MEAN CORPUSCULAR HGB CONC 33.8 g/dL (32.0-36.0); MEAN CORPUSCULAR VOLUME 88 fl (80-97); MONOCYTES % (AUTO) 10.9 % (3-13); PLATELET COUNT 138 10^3/uL (150-450); RED BLOOD COUNT 4.98 10^6/uL (3.72-5.28); RED CELL DISTRIBUTION WIDTH 13.1 % (11.5-14.0); TOTAL CELLS COUNTED % (AUTO) 100 %; WHITE BLOOD COUNT 5.6 10^3/uL (4.0-10.5)
[2018-01-21 17:18] LABS: A TYPE INFLUENZA AG NEGATIVE (NEGATIVE); B INFLUENZA AG NEGATIVE (NEGATIVE)
[2018-01-21 17:51] LABS: ERYTHROCYTE SEDIMENTATION RATE 16 mm/hr (0-20)
[2018-01-21 18:35] LABS: ALANINE AMINOTRANSFERASE 52 U/L (9-52); ALBUMIN 4.5 g/dL (3.5-5.0); ALKALINE PHOSPHATASE 74 U/L (38-126); ANION GAP 8 (5-19); ASPARTATE AMINO TRANSFERASE 38 U/L (14-36); BILIRUBIN,DIRECT 0.1 mg/dL (0.0-0.4); BILIRUBIN,TOTAL 0.4 mg/dL (0.2-1.3); BLOOD UREA NITROGEN 10 mg/dL (7-20); C-REACTIVE PROTEIN < 5.0 mg/L (<10.0); CALCIUM 10.7 mg/dL (8.4-10.2); CARBON DIOXIDE 32 mmol/L (22-30); CHLORIDE 102 mmol/L (98-107); GLUCOSE 89 mg/dL (75-110); POTASSIUM 3.8 mmol/L (3.6-5.0); SODIUM 142.2 mmol/L (137-145); TOTAL PROTEIN 7.4 g/dL (6.3-8.2)
== END ==
LOC: LAB 16:45
PROVIDERS: ATTEND Emergency Medicine
DX: H92.01 Otalgia, right ear (principal); M79.1 Myalgia; R11.0 Nausea; R68.89 Other general symptoms and signs
CPT/HCPCS: 36415; 80053; 85025; 85652; 86140; 87804

== ENCOUNTER 2018-01-22 13:49 | Emergency (ER) | payer BC ==
[2018-01-22] MEDS ORDERED: IPRATROPIUM/ALBUTEROL 0.5-2.5 MG/3 ML AMPUL NEB ONE (14:09)
[2018-01-22] MEDS ORDERED: OXYCODONE-ACETAMINOPHEN 5-325 MG TABLET PO ONE (14:21)
--- NOTE | 2018-01-22 14:23 | ER Document Report ---
ED General - General Chief Complaint: Breathing Difficulty Stated Complaint: DIFFICULTY BREATHING Time Seen by Provider: 01/22/18 14:08 Information source: Patient Notes: HPI-42 years old female presents today with shortness of breath with minimal exertion as well as chest pain. He was treated last few days has flu symptoms. Symptoms getting worse therefore presented to the ED. Getting short of breath even with minimal exertion. Coughing on and off largely dry cough. Denied any fever chills. Denies any left arm numbness tingling sensation. Denies any nausea vomiting palpitation or diaphoresis. REVIEW OF SYSTEMS: CONSTITUTIONAL : Denies fever, chills, or sweats. Denies recent illness. EENT: Denies eye, ear, throat, or mouth pain or symptoms. Denies nasal or sinus congestion or discharge. Denies throat, tongue, or mouth swelling or difficulty swallowing. CARDIOVASCULAR: Denies chest pain. Denies palpitations or racing or irregular heart beat. Denies ankle edema. RESPIRATORY: As per history of complain GASTROINTESTINAL: Denies abdominal pain or distention. Denies nausea, vomiting , or diarrhea. Denies blood in vomitus, stools, or per rectum. Denies black, tarry stools. Denies constipation. GENITOURINARY: Denies difficulty urinating, painful urination, burning, frequency, blood in urine, or discharge. FEMALE GENITOURINARY: Denies vaginal bleeding, heavy or abnormal periods, irregular periods. Denies vaginal discharge or odor. MUSCULOSKELETAL: Denies back or neck pain or stiffness. Denies joint pain or swelling. SKIN: Denies rash, lesions or sores. HEMATOLOGIC : Denies easy bruising or bleeding. LYMPHATIC: Denies swollen, enlarged glands. NEUROLOGICAL: Denies confusion or altered mental status. Denies passing out or loss of consciousness. Denies dizziness or lightheadedness. Denies headache. Denies weakness or paralysis or loss of use of either side. Denies problems with gait or speech. Denies sensory loss, numbness, or tingling. Denies seizures. PSYCHIATRIC: Denies anxiety or stress. Denies depression, suicidal ideation, or homicidal ideation. ALL OTHER SYSTEMS REVIEWED AND NEGATIVE. PHYSICAL EXAMINATION: GENERAL: Appears to be in moderate discomfort HEAD: Atraumatic, normocephalic. EYES: Pupils equal round and reactive to light, extraocular movements intact, conjunctiva are normal. ENT: Nares patent, oropharynx clear without exudates. Moist mucous membranes. NECK: Normal range of motion, supple without lymphadenopathy LUNGS: Breath sounds clear to auscultation bilaterally and equal. No wheezes rales or rhonchi. Decreased breath sounds Diffuse chest wall tenderness noted anteriorly HEART: Regular rate and rhythm without murmurs ABDOMEN: Soft, nontender, nondistended abdomen. No guarding, no rebound. No masses appreciated. Female : deferred Musculoskeletal: Normal range of motion, no pitting or edema. No cyanosis. NEUROLOGICAL: Cranial nerves grossly intact. Normal speech, normal gait. Normal sensory, motor exams PSYCH: Normal mood, normal affect. SKIN: Warm, Dry, normal turgor, no rashes or lesions noted. Dictation was performed using [employer] voice recognition software TRAVEL OUTSIDE OF THE [place] IN LAST 30 DAYS: No - Related Data Allergies/Adverse Reactions: Sulfa (Sulfonamide Antibiotics) Allergy (Intermediate, Verified 01/22/18 13:49) rash/hives iodine [Iodine] Allergy (Mild, Verified 01/22/18 13:49) hives/rash latex [Latex] Adverse Reaction (Mild, Verified 01/22/18 13:49) RASH promethazine [Promethazine] Adverse Reaction (Mild, Verified 01/22/18 13:49) leg shakes Peppers Allergy (Severe, Uncoded 01/22/18 13:49) Anaphylaxis Past Medical History - Social History Smoking Status: Never Smoker Family History: Reviewed & Not Pertinent - Past Medical History Cardiac Medical History: Denies: Hx Coronary Artery Disease, Hx Heart Attack, Hx Hypertension Pulmonary Medical History: Denies: Hx Asthma, Hx Bronchitis, Hx COPD, Hx Pneumonia Neurological Medical History: Reports: Hx Migraine. Denies: Hx Cerebrovascular Accident, Hx Seizures Endocrine Medical History: Reports: Hx Hypothyroidism Renal/ Medical History: Denies: Hx Peritoneal Dialysis GI Medical History: Reports: Hx Gastritis, Hx Irritable Bowel Musculoskeltal Medical History: Denies Hx Arthritis Past Surgical History: Reports: Hx Cholecystectomy, Hx Gynecologic Surgery - Left Oophrectomy, Hx Hysterectomy, Hx Tonsillectomy - T/A - Immunizations Immunizations up to date: Yes Hx Diphtheria, Pertussis, Tetanus Vaccination: Yes Review of Systems - Review of Systems Notes: Review of system unremarkable Physical Exam - Vital signs Vitals: Temp Pulse Resp BP Pulse Ox 98.3 F 80 16 143/87 H 98 01/22/18 13:59 01/22/18 13:59 01/22/18 13:59 01/22/18 13:59 01/22/18 13:59 Course - Re-evaluation Re-evalutation: 01/22/18 17:17 Improved - Vital Signs Vital signs: Temp Pulse Resp BP Pulse Ox 99.2 F 80 19 101/72 95 01/22/18 17:31 01/22/18 13:59 01/22/18 17:31 01/22/18 17:31 01/22/18 17:31 - Laboratory Result Diagrams: 01/22/18 14:39 01/22/18 14:39 Laboratory results interpreted by me: 01/22/18 01/22/18 14:39 14:39 Plt Count 130 L Potassium 3.5 L Calcium 10.9 H - EKG Interpretation by Me EKG shows normal: Sinus rhythm Rate: Normal Rhythm: NSR - Normal sinus rhythm at the rate of 75 bpm normal axis no acute ST elevation ST depression T-wave inversion noted. Discharge - Discharge Clinical Impression: Viral syndrome, Chest wall pain Condition: Fair Disposition: HOME, SELF-CARE Instructions: Anti-Inflammatory Medication ([facility]), Viral Syndrome ([facility]) Prescriptions: Albuterol Sulfate [Proair HFA] 1 - 2 puff IH Q4 PRN #1 inhaler PRN Reason: Referrals: LUIS GERARD MD [Primary Care Provider] - Follow up as needed
[2018-01-22 14:58] LABS: ABSOLUTE EOSINOPHILS # (AUTO) 0.1 10^3/uL (0.0-0.6); ABSOLUTE LYMPHOCYTES (AUTO) 1.8 10^3/uL (0.5-4.7); ABSOLUTE MONOCYTES (AUTO) 0.6 10^3/uL (0.1-1.4); ABSOLUTE NEUT (AUTO) 2.6 10^3/uL (1.7-8.2); BASOPHILS % (AUTO) 0.4 % (0-2); EOSINOPHILS % (AUTO) 1.6 % (0-6); HEMATOCRIT 40.5 % (36.0-47.0); LYMPHOCYTES % (AUTO) 35.4 % (13-45); MEAN CORPUSCULAR HGB CONC 34.6 g/dL (32.0-36.0); MEAN CORPUSCULAR VOLUME 87 fl (80-97); MONOCYTES % (AUTO) 11.5 % (3-13); PLATELET COUNT 130 10^3/uL (150-450); RED BLOOD COUNT 4.66 10^6/uL (3.72-5.28); RED CELL DISTRIBUTION WIDTH 12.9 % (11.5-14.0); SEGMENTED NEUTROPHILS % (AUTO) 51.1 % (42-78); TOTAL CELLS COUNTED % (AUTO) 100 %
[2018-01-22 15:10] LABS: ALANINE AMINOTRANSFERASE 46 U/L (9-52); ALBUMIN 4.5 g/dL (3.5-5.0); ALKALINE PHOSPHATASE 72 U/L (38-126); ANION GAP 9 (5-19); ASPARTATE AMINO TRANSFERASE 30 U/L (14-36); BILIRUBIN,DIRECT 0.3 mg/dL (0.0-0.4); BILIRUBIN,TOTAL 0.5 mg/dL (0.2-1.3); BLOOD UREA NITROGEN 10 mg/dL (7-20); CALCIUM 10.9 mg/dL (8.4-10.2); CARBON DIOXIDE 28 mmol/L (22-30); CHLORIDE 105 mmol/L (98-107); GLUCOSE 93 mg/dL (75-110); POTASSIUM 3.5 mmol/L (3.6-5.0); TOTAL PROTEIN 7.8 g/dL (6.3-8.2)
[2018-01-22] MEDS ORDERED: METHYLPREDNISOLONE INJ 125 MG/2 ML SDV IV ONE (15:11)
[2018-01-22] MEDS ORDERED: DIPHENHYDRAMINE HCL 50 MG/ML VIAL IV ONE (15:11)
[2018-01-22 15:18] LABS: APPEARANCE,URINE CLEAR; BILIRUBIN,URINE NEGATIVE (NEGATIVE); COLOR,URINE YELLOW; GLUCOSE, URINE NEGATIVE (NEGATIVE); KETONES,URINE NEGATIVE (NEGATIVE); LEUKOCYTE ESTERASE,URINE NEGATIVE (NEGATIVE); NITRITE,URINE NEGATIVE (NEGATIVE); PROTEIN,URINE NEGATIVE (NEGATIVE); UROBILINOGEN,URINE NEGATIVE mg/dL (<2.0)
--- NOTE | 2018-01-22 16:01 | RADIOLOGY REPORT (SQ) ---
EXAM DESCRIPTION: CTA CHEST COMPLETED DATE/TIME: 01/22/2018 3:53 pm REASON FOR STUDY: Pulmonary embolism COMPARISON: 01/12/2017 TECHNIQUE: CT scan of the chest performed using helical scanning technique with dynamic intravenous contrast injection. Images reviewed with lung, soft tissue and bone windows. Reconstructed coronal and sagittal MPR images reviewed. Additional 3 dimensional post-processing performed to develop Maximal Intensity Projection images (VT P). All images stored on PACS. All CT scanners at this facility use dose modulation, iterative reconstruction, and/or weight based d osing when appropriate to reduce radiation dose to as low as reasonably achievable (ALARA). [facility]: Dose Right [facility]: CareDose [facility]: Dose Right [facility]: Teradose 4D [facility]: [employer] CONTRAST TYPE AND DOSE: contrast/concentration: Isovue 370.00 mg/ml; Total Contrast Delivered: 65.0 ml; Total Saline Delivered: 85.0 ml Contrast bolus optimized for the pulmonary arteries. Not diagnostic for the aorta. RENAL FUNCTION: BUN 10 creatinine 0.6 RADIATION DOSE: CT Rad equipment meets quality standard of care and radiation dose reduction techniq ues were employed. CTDIvol: 14.3 - 19.8 mGy. DLP: 488 mGy-cm. . LIMITATIONS: None. FINDINGS: LUNGS AND PLEURA: No masses, infiltrates, pneumothorax. No pleural effusions, calcificati ons. AORTA AND GREAT VESSELS: No aneurysm. Contrast bolus not optimized for the aorta. HEART: No pericardial effusion. No significant coronary artery calcifications. PULMONARY ARTERIES: No emboli visualized in the main pulmonary arteries or the segmental branches. HILAR AND MEDIASTINAL STRUCTURES: No identified masses or abnormal nodes. HARDWARE: None in the chest. UPPER ABDOMEN: No significant findings. Limited exam. THYROID AND OTHER SOFT TISSUES: No masses. No adenopathy. BONES: No acute or significant finding. 3D MIPS: Confirm above findings. OTHER: No other significant finding. IMPRESSION: No PE. No acute findings in the chest. COMMENT: Quality ID # [id number]: Final reports with documentation of one or more dose reduction techniques (e.g., Automated exposure control, adjustment of the mA and/or kV according to patient size, use of iterative reconstruction technique) TECHNICAL DOCUMENTATION: JOB ID: [id number] [employer]- All Rights Reserved Reading location - IP/workstation name: [email or web address]
[2018-01-22 17:50] VITALS: BP 101/72
--- NOTE | 2018-01-22 19:04 | EKG REPORT ---
SEVERITY:- NORMAL ECG - SINUS RHYTHM : Confirmed by: Raheel Condon MD 22-Jan-2018 19:03:27
== END 2018-01-22 18:10 | disposition home or self-care (01) ==
LOC: ER 13:49
DX: B34.9 Viral infection, unspecified (principal); R07.89 Other chest pain; R06.02 Shortness of breath
CPT/HCPCS: 93005; 94640; 99285; 96374; 96375; 36415; 85025; 80053; 81001; 71275; 93010; J1200; J2930; J7620

== ENCOUNTER 2018-03-21 09:06 | Emergency (ER) | payer BC ==
--- NOTE | 2018-03-21 09:34 | ER Document Report ---
ED General - General Stated Complaint: POSSIBLE ALLERGIC REACTION Time Seen by Provider: 03/21/18 09:09 Notes: 42-year-old female patient to the emergency department chief complaint of allergic reaction. Thinks she got bit by something. Started itching all over right before coming to work. Several red areas on her arms. Itching around her neck. Has a bite of some sort on her left gluteal fold area. States that she had a anaphylactic reaction from antibiotics when she was a child. Denies any shortness of breath. No difficulty swallowing. No swollen tongue. No wheezing. TRAVEL OUTSIDE OF THE [place] IN LAST 30 DAYS: No - HPI Onset: Just prior to arrival - Related Data Allergies/Adverse Reactions: Sulfa (Sulfonamide Antibiotics) Allergy (Intermediate, Verified 01/22/18 13:49) rash/hives iodine [Iodine] Allergy (Mild, Verified 01/22/18 13:49) hives/rash latex [Latex] Adverse Reaction (Mild, Verified 01/22/18 13:49) RASH promethazine [Promethazine] Adverse Reaction (Mild, Verified 01/22/18 13:49) leg shakes Peppers Allergy (Severe, Uncoded 01/22/18 13:49) Anaphylaxis Past Medical History - General Information source: Patient - Social History Smoking Status: Never Smoker Cigarette use (# per day): No Frequency of alcohol use: None Drug Abuse: None Lives with: Family Family History: Reviewed & Not Pertinent - Past Medical History Cardiac Medical History: Denies: Hx Coronary Artery Disease, Hx Heart Attack, Hx Hypertension Pulmonary Medical History: Denies: Hx Asthma, Hx Bronchitis, Hx COPD, Hx Pneumonia Neurological Medical History: Reports: Hx Migraine. Denies: Hx Cerebrovascular Accident, Hx Seizures Endocrine Medical History: Reports: Hx Hypothyroidism Renal/ Medical History: Denies: Hx Peritoneal Dialysis GI Medical History: Reports: Hx Gastritis, Hx Irritable Bowel Musculoskeltal Medical History: Denies Hx Arthritis Past Surgical History: Reports: Hx Cholecystectomy, Hx Gynecologic Surgery - Left Oophrectomy, Hx Hysterectomy, Hx Tonsillectomy - T/A - Immunizations Immunizations up to date: Yes Hx Diphtheria, Pertussis, Tetanus Vaccination: Yes Review of Systems - Review of Systems Constitutional: denies: Fever, Malaise, Weakness EENT: denies: Eye pain, Nose pain, Difficulty swallowing, Throat swelling Cardiovascular: denies: Chest pain, Palpitations, Heart racing Respiratory: denies: Cough, Hurts to breathe, Short of breath, Wheezing Gastrointestinal: denies: Abdominal pain, Diarrhea, Nausea, Constipation Musculoskeletal: denies: Back pain, Joint pain, Muscle pain Skin: Rash. denies: Dryness, Lesions, Lumps Neurological/Psychological: denies: Confusion, Weakness, Numbness Physical Exam - Vital signs Vitals: Temp Resp BP Pulse Ox 98.3 F 21 H 150/84 H 98 03/21/18 09:16 03/21/18 09:16 03/21/18 09:16 03/21/18 09:16 Interpretation: Normal - General General appearance: Appears well, Alert - HEENT Head: Normocephalic, Atraumatic Eyes: Normal Pupils: PERRL Mouth/Lips: Normal. No: Angioedema Mucous membranes: Normal Pharynx: Normal Neck: Normal - Respiratory Respiratory status: No respiratory distress Chest status: Nontender Breath sounds: Normal Chest palpation: Normal - Cardiovascular Rhythm: Regular Heart sounds: Normal auscultation Murmur: No - Abdominal Inspection: Normal Distension: No distension Bowel sounds: Normal Tenderness: Nontender Organomegaly: No organomegaly - Back Back: Normal, Nontender - Extremities General upper extremity: Normal inspection, Nontender, Normal color, Normal ROM , Normal temperature General lower extremity: Normal inspection, Nontender, Normal color, Normal ROM , Normal temperature, Normal weight bearing. No: Santos's sign - Neurological Neuro grossly intact: Yes Cognition: Normal Orientation: AAOx4 Johnnie Coma Scale Eye Opening: Spontaneous Johnnie Coma Scale Verbal: Oriented Johnnie Coma Scale Motor: Obeys Commands S[place]uma Coma Scale Total: 15 Speech: Normal Motor strength normal: LUE, RUE, LLE, RLE Sensory: Normal - Psychological Associated symptoms: Normal affect, Normal mood - Skin Skin Temperature: Warm Skin Moisture: Dry Skin Color: Other - There are a few small areas of redness. 1 noted on the back of the left hand. One noted on the left buttock area. Some redness around the neck. Course - Re-evaluation Re-evalutation: 03/21/18 10:59 Benadryl, Pepcid, Solu-Medrol given. Patient is well-appearing. Anticipate discharge shortly. - Vital Signs Vital signs: Temp Pulse Resp BP Pulse Ox 98.3 F 17 132/76 H 96 05/23/18 09:16 03/21/18 10:01 03/21/18 10:01 03/21/18 10:01 Discharge - Discharge Clinical Impression: Allergic reaction to insect bite Condition: Good Disposition: HOME, SELF-CARE Instructions: Acute Allergic Reaction ([facility]) Prescriptions: Prednisone [Deltasone 20 mg Tablet] 3 tab PO DAILY 2 Days #6 tablet Ranitidine HCl [Zantac] 150 mg PO BID 5 Days #10 tablet Referrals: LUIS GERARD MD [Primary Care Provider] - Follow up as needed
[2018-03-21] MEDS ORDERED: FAMOTIDINE INJ/PF 20 MG/2 ML SDV IV ONE (09:42)
[2018-03-21] MEDS ORDERED: METHYLPREDNISOLONE INJ 125 MG/2 ML SDV IV ONE (09:42)
[2018-03-21] MEDS ORDERED: DIPHENHYDRAMINE HCL 50 MG/ML VIAL IV ONE (09:43)
[2018-03-21 11:12] VITALS: BP 119/79
== END 2018-03-21 11:32 | disposition home or self-care (01) ==
LOC: ER 09:06
DX: T78.40XA Allergy, unspecified, initial encounter (principal); S40.862A Insect bite (nonvenomous) of left upper arm, initial encounter; S40.861A Insect bite (nonvenomous) of right upper arm, initial encounter; W57.XXXA Bitten or stung by nonvenomous insect and other nonvenomous arthropods, initial encounter
CPT/HCPCS: 99283; 96374; 96375; J1200; J2930; S0028

== ENCOUNTER 2019-04-23 17:43 | Emergency (ER) | payer BC ==
[2019-04-23] MEDS ORDERED: NORMAL SALINE 1000 ML 1,000 ML IV ONE (17:54)
[2019-04-23] MEDS ORDERED: ONDANSETRON HCL INJ/PF 4 MG/2 ML SDV IV ONE (17:55)
[2019-04-23] MEDS ORDERED: KETOROLAC TROMETHAMINE INJ/PF 30 MG/1 ML SDV IV ONE (18:33)
[2019-04-23 18:39] LABS: ABSOLUTE BASOPHILS # (AUTO) 0.1 10^3/uL (0.0-0.2); ABSOLUTE EOSINOPHILS # (AUTO) 0.1 10^3/uL (0.0-0.6); ABSOLUTE LYMPHOCYTES (AUTO) 2.2 10^3/uL (0.5-4.7); ABSOLUTE MONOCYTES (AUTO) 0.6 10^3/uL (0.1-1.4); ABSOLUTE NEUT (AUTO) 8.6 10^3/uL (1.7-8.2); BASOPHILS % (AUTO) 0.5 % (0-2); HEMOGLOBIN 13.3 g/dL (12.0-15.5); LYMPHOCYTES % (AUTO) 18.7 % (13-45); MEAN CORPUSCULAR HEMOGLOBIN 29.9 pg (27.0-33.4); MEAN CORPUSCULAR HGB CONC 34.2 g/dL (32.0-36.0); MEAN CORPUSCULAR VOLUME 87 fl (80-97); MONOCYTES % (AUTO) 5.4 % (3-13); PLATELET COUNT 181 10^3/uL (150-450); RED BLOOD COUNT 4.46 10^6/uL (3.72-5.28); RED CELL DISTRIBUTION WIDTH 12.2 % (11.5-14.0); SEGMENTED NEUTROPHILS % (AUTO) 74.4 % (42-78); TOTAL CELLS COUNTED % (AUTO) 100 %; WHITE BLOOD COUNT 11.6 10^3/uL (4.0-10.5)
[2019-04-23 18:57] LABS: ALANINE AMINOTRANSFERASE 30 U/L (9-52); ALBUMIN 4.7 g/dL (3.5-5.0); ALKALINE PHOSPHATASE 90 U/L (38-126); ANION GAP 11 (5-19); ASPARTATE AMINO TRANSFERASE 20 U/L (14-36); BILIRUBIN,DIRECT 0.2 mg/dL (0.0-0.4); BILIRUBIN,TOTAL 0.6 mg/dL (0.2-1.3); BLOOD UREA NITROGEN 10 mg/dL (7-20); CALCIUM 11.2 mg/dL (8.4-10.2); CARBON DIOXIDE 27 mmol/L (22-30); CHLORIDE 102 mmol/L (98-107); GLUCOSE 99 mg/dL (75-110); LIPASE 21.6 U/L (23-300); POTASSIUM 3.5 mmol/L (3.6-5.0); SODIUM 139.6 mmol/L (137-145); TOTAL PROTEIN 8.2 g/dL (6.3-8.2)
[2019-04-23] MEDS ORDERED: POTASSIUM CHLORIDE 10 MEQ CAPSULE.ER PO ONE (19:07)
[2019-04-23 20:16] LABS: APPEARANCE,URINE SLIGHTLY-CLOUDY; BILIRUBIN,URINE NEGATIVE (NEGATIVE); COLOR,URINE YELLOW; GLUCOSE, URINE NEGATIVE (NEGATIVE); KETONES,URINE TRACE mg/dL (NEGATIVE); LEUKOCYTE ESTERASE,URINE NEGATIVE (NEGATIVE); NITRITE,URINE NEGATIVE (NEGATIVE); PROTEIN,URINE NEGATIVE (NEGATIVE); URINE SPECIFIC GRAVITY 1.017; UROBILINOGEN,URINE NEGATIVE mg/dL (<2.0)
--- NOTE | 2019-04-23 20:29 | ER Document Report ---
ED General - General Chief Complaint: Nausea/Vomiting Stated Complaint: NAUSEA/VOMITING Time Seen by Provider: 04/23/19 17:51 Primary Care Provider: LUIS GERARD MD [Primary Care Provider] - Follow up as needed Notes: Patient is a 44-year-old female history of migraine and presents to the emergency department for generalized nausea and vomiting x1. Patient's denying any blood in her emesis. Patient states she does have generalized headache. States "I feel like a migraine is coming on." Patient's denying any diarrhea, dysuria, vaginal discharge, falling or hitting her head. States she feels as though she has not been eating and drinking like she normally should today. Patient's denying any abdominal pain, chest pain, shortness of breath. States she feels dehydrated. Past medical history: Migraines Medications: Fioricet, Maxalt Allergies: Sulfa, IV dye Surgical history: Hysterectomy, cholecystectomy TRAVEL OUTSIDE OF THE [place] IN LAST 30 DAYS: No - Related Data Allergies/Adverse Reactions: Sulfa (Sulfonamide Antibiotics) Allergy (Intermediate, Verified 01/22/18 13:49) rash/hives iodine [Iodine] Allergy (Mild, Verified 01/22/18 13:49) hives/rash latex [Latex] Adverse Reaction (Mild, Verified 01/22/18 13:49) RASH promethazine [Promethazine] Adverse Reaction (Mild, Verified 01/22/18 13:49) leg shakes Peppers Allergy (Severe, Uncoded 01/22/18 13:49) Anaphylaxis Past Medical History - General Information source: Patient - Social History Smoking Status: Unknown if Ever Smoked Family History: Reviewed & Not Pertinent Patient has suicidal ideation: No Patient has homicidal ideation: No - Past Medical History Cardiac Medical History: Denies: Hx Coronary Artery Disease, Hx Heart Attack, Hx Hypertension Pulmonary Medical History: Denies: Hx Asthma, Hx Bronchitis, Hx COPD, Hx Pneumonia Neurological Medical History: Reports: Hx Migraine. Denies: Hx Cerebrovascular Accident, Hx Seizures Endocrine Medical History: Reports: Hx Hypothyroidism Renal/ Medical History: Denies: Hx Peritoneal Dialysis GI Medical History: Reports: Hx Gastritis, Hx Irritable Bowel Musculoskeletal Medical History: Denies Hx Arthritis Past Surgical History: Reports: Hx Cholecystectomy, Hx Gynecologic Surgery - Left Oophrectomy, Hx Hysterectomy, Hx Tonsillectomy - T/A - Immunizations Immunizations up to date: Yes Hx Diphtheria, Pertussis, Tetanus Vaccination: Yes Review of Systems - Review of Systems Constitutional: denies: Fever EENT: No symptoms reported Cardiovascular: No symptoms reported Respiratory: No symptoms reported Gastrointestinal: See HPI Genitourinary: No symptoms reported Female Genitourinary: No symptoms reported Musculoskeletal: No symptoms reported Skin: No symptoms reported Hematologic/Lymphatic: No symptoms reported Neurological/Psychological: See HPI Physical Exam - Vital signs Vitals: Temp Pulse Resp BP Pulse Ox 97.7 F 74 16 120/81 97 04/23/19 18:04 04/23/19 18:04 04/23/19 18:04 04/23/19 18:04 04/23/19 18:04 - Notes Notes: GENERAL: Alert, interacts well. No acute distress. HEAD: Normocephalic, atraumatic. EYES: Pupils equal, round, and reactive to light. Extraocular movements intact. ENT: Oral mucosa moist, tongue midline. NECK: Full range of motion. Supple. Trachea midline. LUNGS: Clear to auscultation bilaterally, no wheezes, rales, or rhonchi. No respiratory distress. HEART: Regular rate and rhythm. No murmur ABDOMEN: Soft, non-tender. Non-distended. Bowel sounds present in all 4 quadrants. EXTREMITIES: Moves all 4 extremities spontaneously. No edema, normal radial and dorsalis pedis pulses bilaterally. No cyanosis. 5 out of 5 strength all 4 extremities BACK: no cervical, thoracic, lumbar midline tenderness. No saddle anesthesia, normal distal neurovascular exam. NEUROLOGICAL: Alert and oriented x3. Normal speech. cranial nerves II through XII grossly intact. PSYCH: Normal affect, normal mood. SKIN: Warm, dry, normal turgor. No rashes or lesions noted. Course - Re-evaluation Re-evalutation: I have discussed with the patient typical migraine treatments. Patient states "my headaches not that bad I just felt nauseous." Patient is willing to be treated with antinausea medication and Toradol. States she would like to go home and take her Fioricet if her headache continues. Patient states she does not want any medication that will "make me drowsy." Patient's neurological exam is within normal limits. After treatments in the emergency department patient states she overall feels better. Urine sent for culture Patient stable for discharge - Vital Signs Vital signs: Temp Pulse Resp BP Pulse Ox 97.9 F 78 16 132/80 H 100 04/23/19 20:45 04/23/19 20:45 04/23/19 20:45 04/23/19 20:45 04/23/19 20:45 - Laboratory Result Diagrams: 04/23/19 18:18 04/23/19 18:18 Laboratory results interpreted by me: 04/23/19 04/23/19 04/23/19 18:18 18:18 19:15 WBC 11.6 H Absolute Neutrophils 8.6 H Potassium 3.5 L Calcium 11.2 H Lipase 21.6 L Urine Ketones TRACE H Discharge - Discharge Clinical Impression: Nausea & vomiting Qualifiers: Vomiting type: unspecified Vomiting Intractability: non-intractable Qualified Code(s): R11.2 - Nausea with vomiting, unspecified Migraine Qualifiers: Migraine type: unspecified Status migrainosus presence: without status migrainosus Intractability: not intractable Qualified Code(s): G43.909 - Migraine, unspecified, not intractable, without status migrainosus Condition: Stable Disposition: HOME, SELF-CARE Instructions: Antinausea Medication ([facility]), Intravenous (IV) Fluids ([facility]), Migraine Headache ([facility]), Vomiting ([facility]) Additional Instructions: As we discussed you have been seen and treated in the emergency department for nausea, vomiting, migraine headache. Your urine shows no signs of immediate infection. I have sent it for culture, should it grow bacteria the hospital will call you. Please make sure that you are taking your prescription migraine medications as prescribed. Please also make sure you are staying well-hydrated. Please follow-up with your primary care provider in the next 24 to 48 hours. Please return to the emergency room for any concerns. Prescriptions: Ondansetron [Zofran Odt 4 mg Tablet] 1 - 2 tab PO Q6 PRN #10 tab.rapdis PRN Reason: For Nausea/Vomiting Forms: Return to Work Referrals: LUIS GERARD MD [Primary Care Provider] - Follow up as needed
[2019-04-23 20:45] VITALS: BP 132/80
== END 2019-04-23 20:05 | disposition home or self-care (01) ==
LOC: ER 17:43
DX: G43.909 Migraine, unspecified, not intractable, without status migrainosus (principal); R11.2 Nausea with vomiting, unspecified; E03.9 Hypothyroidism, unspecified; Z90.710 Acquired absence of both cervix and uterus; Z90.49 Acquired absence of other specified parts of digestive tract; Z88.2 Allergy status to sulfonamides; Z91.040 Latex allergy status
CPT/HCPCS: 99283; 96361; 96374; 96375; 36415; 87086; 83690; 85025; 80053; 81001; J1885; J2405; J7030

== ENCOUNTER 2019-08-23 08:24 | Emergency (ER) | payer BC ==
[2019-08-23 09:36] LABS: ABSOLUTE BASOPHILS # (AUTO) 0.1 10^3/uL (0.0-0.2); ABSOLUTE EOSINOPHILS # (AUTO) 0.2 10^3/uL (0.0-0.6); ABSOLUTE LYMPHOCYTES (AUTO) 2.3 10^3/uL (0.5-4.7); ABSOLUTE MONOCYTES (AUTO) 0.7 10^3/uL (0.1-1.4); BASOPHILS % (AUTO) 0.8 % (0-2); EOSINOPHILS % (AUTO) 2.1 % (0-6); HEMATOCRIT 44.2 % (36.0-47.0); HEMOGLOBIN 14.6 g/dL (12.0-15.5); LYMPHOCYTES % (AUTO) 24.7 % (13-45); MEAN CORPUSCULAR HEMOGLOBIN 29.8 pg (27.0-33.4); MEAN CORPUSCULAR VOLUME 91 fl (80-97); MONOCYTES % (AUTO) 7.8 % (3-13); PLATELET COUNT 213 10^3/uL (150-450); RED BLOOD COUNT 4.89 10^6/uL (3.72-5.28); RED CELL DISTRIBUTION WIDTH 12.8 % (11.5-14.0); SEGMENTED NEUTROPHILS % (AUTO) 64.6 % (42-78); TOTAL CELLS COUNTED % (AUTO) 100 %; WHITE BLOOD COUNT 9.3 10^3/uL (4.0-10.5)
[2019-08-23 09:56] LABS: APPEARANCE,URINE CLEAR; BILIRUBIN,URINE NEGATIVE (NEGATIVE); COLOR,URINE YELLOW; GLUCOSE, URINE NEGATIVE (NEGATIVE); KETONES,URINE NEGATIVE (NEGATIVE); LEUKOCYTE ESTERASE,URINE NEGATIVE (NEGATIVE); NITRITE,URINE NEGATIVE (NEGATIVE); PROTEIN,URINE NEGATIVE (NEGATIVE); URINE SPECIFIC GRAVITY 1.016; UROBILINOGEN,URINE NEGATIVE mg/dL (<2.0)
[2019-08-23 10:05] LABS: ALBUMIN 4.6 g/dL (3.5-5.0); ALKALINE PHOSPHATASE 92 U/L (38-126); ANION GAP 10 (5-19); ASPARTATE AMINO TRANSFERASE 29 U/L (14-36); BILIRUBIN,DIRECT 0.2 mg/dL (0.0-0.4); BILIRUBIN,TOTAL 0.7 mg/dL (0.2-1.3); BLOOD UREA NITROGEN 14 mg/dL (7-20); CALCIUM 10.4 mg/dL (8.4-10.2); CARBON DIOXIDE 24 mmol/L (22-30); CHLORIDE 107 mmol/L (98-107); GLUCOSE 94 mg/dL (75-110); POTASSIUM 4.4 mmol/L (3.6-5.0); TOTAL PROTEIN 8.3 g/dL (6.3-8.2)
[2019-08-23] MEDS ORDERED: NORMAL SALINE 500 ML IV ONE (11:17)
[2019-08-23] MEDS ORDERED: ONDANSETRON HCL INJ/PF 4 MG/2 ML SDV IV ONE (11:17)
[2019-08-23] MEDS ORDERED: KETOROLAC TROMETHAMINE INJ/PF 30 MG/1 ML SDV IV ONE (11:17)
--- NOTE | 2019-08-23 11:20 | ER Document Report ---
ED General - General Chief Complaint: Headache Stated Complaint: MIGRAINE Time Seen by Provider: 08/23/19 10:39 Primary Care Provider: LUIS GERARD MD [Primary Care Provider] - Follow up as needed TRAVEL OUTSIDE OF THE [place] IN LAST 30 DAYS: No - HPI Notes: Patient is a 44-year-old female presents emergency department for evaluation of a migraine headache. Is been ongoing for last 4 days, she states she has not had one this bad in quite some time. She had nausea and vomiting yesterday. She continues to feel significant nausea. She states the pain is over the right eye. She states that she rarely gets them there, though usually on the left side. She was out of her Maxalt, has been using Fioricet and Excedrin at home without any significant relief. She denies any fevers or chills. She states she has some numbness in her left hand and under her right eye yesterday. She states she had these accompanying a migraine in the past. She denies any trauma. No other acute complaints or concerns. - Related Data Allergies/Adverse Reactions: Sulfa (Sulfonamide Antibiotics) Allergy (Intermediate, Verified 01/22/18 13:49) rash/hives iodine [Iodine] Allergy (Mild, Verified 01/22/18 13:49) hives/rash latex [Latex] Adverse Reaction (Mild, Verified 01/22/18 13:49) RASH promethazine [Promethazine] Adverse Reaction (Mild, Verified 01/22/18 13:49) leg shakes Peppers Allergy (Severe, Uncoded 01/22/18 13:49) Anaphylaxis Home Medications: Zofran. Fioricet. Maxalt. Benadryl PRN. Motrin PRN. Roba mike Past Medical History - General Information source: Patient - Social History Smoking Status: Unknown if Ever Smoked Family History: Reviewed & Not Pertinent Patient has suicidal ideation: No Patient has homicidal ideation: No - Past Medical History Cardiac Medical History: Denies: Hx Coronary Artery Disease, Hx Heart Attack, Hx Hypertension Pulmonary Medical History: Denies: Hx Asthma, Hx Bronchitis, Hx COPD, Hx Pneumonia Neurological Medical History: Reports: Hx Migraine. 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 Renal/ Medical History: Denies: Hx Peritoneal Dialysis GI Medical History: Reports: Hx Gastritis, Hx Irritable Bowel Musculoskeletal Medical History: Denies Hx Arthritis Past Surgical History: Reports: Hx Cholecystectomy, Hx Gynecologic Surgery - Left Oophrectomy, Hx Hysterectomy, Hx Tonsillectomy - T/A - Immunizations Immunizations up to date: Yes Hx Diphtheria, Pertussis, Tetanus Vaccination: Yes Review of Systems - Review of Systems Constitutional: No symptoms reported EENT: No symptoms reported Cardiovascular: No symptoms reported Respiratory: No symptoms reported Gastrointestinal: See HPI Genitourinary: No symptoms reported Musculoskeletal: No symptoms reported Skin: No symptoms reported Neurological/Psychological: No symptoms reported Physical Exam - Vital signs Vitals: Temp Pulse Resp BP Pulse Ox 98.2 F 78 16 135/88 H 98 08/23/19 08:30 08/23/19 08:30 08/23/19 08:30 08/23/19 08:30 08/23/19 08:30 - Notes Notes: Vital signs reviewed, please refer to chart. Head is normocephalic, atraumatic. Pupils equal round, reactive to light. Neck is supple without meningismus. Heart is regular rate and rhythm. Lungs are clear to auscultation bilaterally. Abdomen is soft, nontender, normoactive bowel sounds throughout. Extremities without cyanosis, clubbing. Posterior calves are nontender. Peripheral pulses are equal. Skin is warm and dry. Patient is awake, alert, oriented x3. Cranial nerves II - XII are grossly intact without focal neurological deficits. Strength is plus 5 out of 5 bilateral upper and lower extremities. Sensation is intact. Reflexes symmetrical. Intact [id number], rapid alternating movements, [id number]. Course - Re-evaluation Re-evalutation: 08/23/19 11:19 Patient presents emergency department for evaluation of a migraine. While this is slightly atypical for her, it is not completely out of the norm. She does have a history of migraines. She states she is actually feeling better today than she did yesterday. She was in a meeting and it seemed to worsen. We discussed Toradol, Reglan, Benadryl. She states she really does not want the Benadryl as it has made her very tired in the past. 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 As a result, I will elect to treat with fluids, Toradol, Zofran. We will send the patient home with a prescription for Maxalt. She is to follow-up with her primary care physician, return to the ED with worsening. 08/23/19 12:34 Patient feeling significantly improved, we will then discharge her to home. - Vital Signs Vital signs: Temp Pulse Resp BP Pulse Ox 98.2 F 78 16 135/88 H 98 08/23/19 08:30 08/23/19 08:30 08/23/19 08:30 08/23/19 08:30 08/23/19 08:30 - Laboratory Result Diagrams: 08/23/19 09:16 08/23/19 09:16 Laboratory results interpreted by me: 08/23/19 09:16 Calcium 10.4 H Total Protein 8.3 H Discharge - Discharge Clinical Impression: Migraine Condition: Stable Disposition: HOME, SELF-CARE Instructions: Migraine Headache ([facility]) Additional Instructions: Rest, stay well-hydrated. Take Maxalt as needed at home for your headaches. Follow-up with your primary care provider next week. Return to the emergency department with worsening or new concerning symptoms of any sort. Prescriptions: Rizatriptan Benzoate [Maxalt] 10 mg PO ASDIR PRN #6 tablet PRN Reason: Referrals: LUIS GERARD MD [Primary Care Provider] - Follow up as needed
[2019-08-23 13:13] VITALS: BP 120/70
== END 2019-08-23 13:13 | disposition home or self-care (01) ==
LOC: ER 08:24
DX: G43.909 Migraine, unspecified, not intractable, without status migrainosus (principal); R11.2 Nausea with vomiting, unspecified; R20.0 Anesthesia of skin; Z79.899 Other long term (current) drug therapy; Z88.2 Allergy status to sulfonamides; Z87.892 Personal history of anaphylaxis; Z91.018 Allergy to other foods
CPT/HCPCS: 99283; 96361; 96374; 96375; 36415; 85025; 80053; 81001; J1885; J2405; J7040

== ENCOUNTER → 2020-02-11 | Outpatient (CLI) | payer BC ==
--- NOTE | 2020-02-12 08:15 | RADIOLOGY REPORT (SQ) ---
EXAM DESCRIPTION: MRI LUMBAR SPINE WITHOUT IMAGES COMPLETED DATE/TIME: 02/11/2020 5:28 pm REASON FOR STUDY: M51.36 OTHER INTERVERTEBRAL DISC DEGENERATION, LUMBAR REGION M51.36 OTHER INTERVE RTEBRAL DISC DEGENERATION, LUMBAR REGION COMPARISON: None. TECHNIQUE: Sagittal and Axial imaging includes T1, T2, STIR and gradient echo sequences. Coronal T2/ HASTE imaging. LIMITATIONS: None. FINDINGS: VISUALIZED UPPER ABDOMEN: Limited evaluation. No acute or suspicious findings suggested. SEGMENTATION: No transitional anatomy. The lowest well-developed disc space is labeled L5-S1. ALIGNMENT: Anatomic. VERTEBRAE: Intact. BONE MARROW: Normal. No marrow replacement or reactive changes. DISC SIGNAL: Loss of normal water signal at L4-L5. POSTERIOR ELEMENTS: Generally intact. No pars defect evident. HARDWARE: None in the spine. CORD AND CONUS: Normal in size and signal intensity. Conus at the appropriate level. SOFT TISSUES: No aortic aneurysm seen. No bulky retroperitoneal adenopathy or mass. No paraspinal mas s or fluid. L1-L2: No significant spinal stenosis or exit foraminal stenosis. L2-L3: No significant spinal stenosis or exit foraminal stenosis. L3-L4: No significant spinal stenosis or exit foraminal stenosis. L4-L5: Desiccation along with mild annular bulging. No central stenosis or nerve root impingement. L5-S1: No significant spinal stenosis or exit foraminal stenosis. LOWER THORACIC: Incompletely imaged. No stenosis seen. SACRUM: Visualized upper sacrum intact. OTHER: No other significant findings. IMPRESSION: Early desiccation at L4-L5. No central stenosis or nerve root impingement. TECHNICAL DOCUMENTATION: JOB ID: [id number] 2010 [employer]- All Rights Reserved Reading location - IP/workstation name: [email or web address]
== END ==
LOC: RAD 16:50
PROVIDERS: ATTEND Family Medicine
DX: M51.36 Other intervertebral disc degeneration, lumbar region (principal)
CPT/HCPCS: 72148

== ENCOUNTER 2020-08-05 12:54 | Emergency (ER) | payer BC ==
[2020-08-05] MEDS ORDERED: FAMOTIDINE INJ/PF 20 MG/2 ML SDV IV ONE (13:15)
[2020-08-05] MEDS ORDERED: DIPHENHYDRAMINE HCL 50 MG/ML VIAL IV ONE (13:15)
[2020-08-05] MEDS ORDERED: KETOROLAC TROMETHAMINE INJ/PF 30 MG/1 ML SDV IV ONE (13:56)
[2020-08-05] MEDS ORDERED: DEXAMETHASONE SOD PHOS INJ 10 MG/1 ML VIAL IV ONE (13:56)
--- NOTE | 2020-08-05 13:56 | ER Document Report ---
Entered by SHAAN LOVING SCRIBE 08/05/20 1306 Acting as scribe for:KAI GRAY MD ED Allergic Reaction - General Chief Complaint: Allergic Reaction Stated Complaint: POSSIBLE ALLERGIC REACTION Time Seen by Provider: 08/05/20 13:05 Primary Care Provider: BLUE FUENTES MD [COMMUNITY BASED STAFF] - Follow up as needed Mode of Arrival: Wheelchair Information source: Patient Notes: This 45 year old female patient presents to the ED today with complaints of an allergic reaction that started just prior to arrival. Patient states that she thinks she ate some food with peppers in it, which she is allergic too. 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 TRAVEL OUTSIDE OF THE [place] IN LAST 30 DAYS: No - Related Data Allergies/Adverse Reactions: Sulfa (Sulfonamide Antibiotics) Allergy (Intermediate, Verified 01/22/18 13:49) rash/hives iodine [Iodine] Allergy (Mild, Verified 01/22/18 13:49) hives/rash latex [Latex] Adverse Reaction (Mild, Verified 01/22/18 13:49) RASH promethazine [Promethazine] Adverse Reaction (Mild, Verified 01/22/18 13:49) leg shakes Peppers Allergy (Severe, Uncoded 01/22/18 13:49) Anaphylaxis Past Medical History - General Information source: Patient - Social History Smoking Status: Never Smoker Cigarette use (# per day): No Chew tobacco use (# tins/day): No Smoking Education Provided: No Frequency of alcohol use: Occasional Drug Abuse: None Family History: Reviewed & Not Pertinent Patient has suicidal ideation: No Patient has homicidal ideation: No Neurological Medical History: Reports: Hx Migraine Endocrine Medical History: 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 GI Medical History: Reports: Hx Gastritis, Hx Gastroesophageal Reflux Disease - 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, Hx Irritable Bowel Past Surgical History: Reports: Hx Cholecystectomy, Hx Gynecologic Surgery - Left oophrectomy due to ovarian torsion, Hx Hysterectomy, Hx Tonsillectomy, Other - Hx Ablation x3 for barett's esophagus due to GERD - Immunizations Immunizations up to date: Yes Hx Diphtheria, Pertussis, Tetanus Vaccination: Yes Review of Systems - Review of Systems Constitutional: No symptoms reported EENT: See HPI, Nose congestion, Throat pain, Other - "puffy eyes" Cardiovascular: No symptoms reported Respiratory: No symptoms reported Gastrointestinal: No symptoms reported Genitourinary: No symptoms reported Female Genitourinary: No symptoms reported Musculoskeletal: No symptoms reported Skin: No symptoms reported Hematologic/Lymphatic: No symptoms reported Neurological/Psychological: See HPI, Headaches -: Yes All other systems reviewed and negative Physical Exam - Vital signs Vitals: BP Pulse Ox 158/106 H 100 08/05/20 13:07 08/05/20 13:07 - General General appearance: Alert, Anxious In distress: None - HEENT Head: Normocephalic, Atraumatic Eyes: Normal. No: Periorbital edema Conjunctiva: Normal Extraocular movements intact: Yes Pupils: PERRL Mouth/Lips: Normal. No: Angioedema Pharynx: Normal, Other - No edema noted in the posterior pharynx. No: Erythema, Uvular edema - Respiratory Respiratory status: No respiratory distress Chest status: Nontender Breath sounds: Normal Chest palpation: Normal - Cardiovascular Rhythm: Regular Heart sounds: Normal auscultation Murmur: No Friction rub: No Gallop: None auscultated - Abdominal Inspection: Normal Distension: No distension Bowel sounds: Normal Tenderness: Nontender - Abdomen soft Organomegaly: No organomegaly - Back Back: Normal, Nontender - Extremities General upper extremity: Normal inspection General lower extremity: Normal inspection. No: Edema - Neurological Neuro grossly intact: Yes Orientation: AAOx4 [place] Coma Scale Eye Opening: Spontaneous [place] Coma Scale Verbal: Oriented [place]nie Coma Scale Motor: Obeys Commands Johnnie Coma Scale Total: 15 - Psychological Associated symptoms: Anxious - Skin Skin Temperature: Warm Skin Moisture: Dry Skin Color: Normal Course - Re-evaluation Re-evalutation: 08/05/20 15:33 Patient reports her headache is mostly gone after the Toradol. She reports she had a very strange sensation when she got the Toradol and Decadron IV, she felt like the sensation you feel getting IV contrast prior to CT scan, and then had a feeling like fire ants biting her all over her body. It did dissipate after some additional Benadryl. This has not happened to Toradol injections in the past, so do not know if there is perhaps something in the Decadron delivery vehicle that she may be allergic to. Overall her symptoms have mostly cleared and she just has some scratchy sensation in her throat now. - Vital Signs Vital signs: Temp Pulse Resp BP Pulse Ox 20 127/88 H 97 08/05/20 15:01 08/05/20 15:01 08/05/20 15:01 Discharge - Discharge Clinical Impression: Acute allergic reaction Qualifiers: Encounter type: initial encounter Qualified Code(s): T78.40XA - Allergy, unspecified, initial encounter Headache Qualifiers: Headache type: unspecified Headache chronicity pattern: acute headache Intractability: not intractable Qualified Code(s): R51.9 - Headache, unspecified Condition: Stable Disposition: HOME, SELF-CARE Additional Instructions: Acute Allergic Reaction Your symptoms are due to an allergic reaction. Allergy can cause hives, swelling of the hands, feet, and face, hoarseness, and difficulty swallowing or breathing. It may be due to exposure to medication, animal dander, foods, infection, or insect bites. Medication is a common cause, even when prior use of this same medication caused no problems. Acute treatment may include adrenalin and antihistamines. Usually, the specific allergic agent can't be identified unless repeated episodes occur. Home treatment includes the following: (1) Stop any suspicious medications. This will be discussed with you. (2) Oral antihistamines for the next four to five days. Example, diphenhydramine (Benadryl) every four hours. (3) You may also use cimetidine (Tagamet), or famotidine (Pepcid) every four hours if diphenhydramine is not controlling itching and hives. (4) Avoid aspirin until the hives completely disappear. (5) Avoid hot baths or showers until the hives are completely gone. Call the doctor if faintness, difficulty swallowing, tightness in the chest, or wheezing occurs. Referrals: BLUE FUENTES MD [COMMUNITY BASED STAFF] - Follow up as needed I personally performed the services described in the documentation, reviewed and edited the documentation which was dictated to the scribe in my presence, and it accurately records my words and actions.
[2020-08-05] MEDS ORDERED: LORAZEPAM INJ 2 MG/1 ML VIAL IV ONE (14:32)
[2020-08-05] MEDS ORDERED: DIPHENHYDRAMINE HCL 25 MG CAPSULE PO ONE (15:09)
[2020-08-05 15:31] VITALS: BP 127/88
== END 2020-08-05 15:39 | disposition home or self-care (01) ==
LOC: ER 12:54
DX: T78.40XA Allergy, unspecified, initial encounter (principal); R51.9 Headache, unspecified; R09.81 Nasal congestion; X58.XXXA Exposure to other specified factors, initial encounter; Z91.040 Latex allergy status; Z88.2 Allergy status to sulfonamides
CPT/HCPCS: 99284; 96374; 96375; J1200; J1885; S0028; J1100

== ENCOUNTER → 2020-10-02 | Outpatient (CLI) | payer BC ==
[2020-10-02 14:59] LABS: ALBUMIN 4.9 g/dL (3.5-5.0); ALKALINE PHOSPHATASE 110 U/L (38-126); ANION GAP 9 (5-19); ASPARTATE AMINO TRANSFERASE 36 U/L (14-36); BILIRUBIN,TOTAL 0.8 mg/dL (0.2-1.3); BLOOD UREA NITROGEN 15 mg/dL (7-20); CALCIUM 11.5 mg/dL (8.4-10.2); CARBON DIOXIDE 28 mmol/L (22-30); CHLORIDE 101 mmol/L (98-107); CHOLESTEROL 217.73 mg/dL (0-200); GLUCOSE 84 mg/dL (75-110); TOTAL PROTEIN 8.5 g/dL (6.3-8.2); TRIGLYCERIDES 75 mg/dL (<150)
[2020-10-02 15:10] LABS: DIRECT LDL 132 mg/dL (<100)
[2020-10-02 15:14] LABS: FREE T3 2.85 pg/mL (2.77-5.27); FREE T4 (FREE THYROXINE) 0.58 ng/dL (0.78-2.19)
[2020-10-02 15:28] LABS: THYROID STIMULATING HORMONE 20.9 uIU/mL (0.47-4.68)
== END ==
LOC: OD 12:43
PROVIDERS: ATTEND Physician Assistant
DX: E03.9 Hypothyroidism, unspecified (principal); I10 Essential (primary) hypertension; E55.9 Vitamin D deficiency, unspecified
CPT/HCPCS: 36415; 80053; 80061; 82306; 84439; 84443; 84481; 86376